=== PATIENT | female | born 1950 | race Caucasian/White ===

== ENCOUNTER 2019-04-01 05:56 | Day surgery (SDC) | payer MEDICARE ==
[2019-03-26 16:31] VITALS: BMI 24.6
[2019-04-01] MEDS ORDERED: LIDOCAINE HCL/PF 2% SDV 5ML VIAL ONE (07:17)
[2019-04-01] MEDS ORDERED: PROPOFOL 20 ML ONE (07:18)
[2019-04-01] MEDS ORDERED: MIDAZOLAM HCL 2 MG/2 ML SINGLE DOSE VIAL ONE (07:18)
[2019-04-01] MEDS ORDERED: BUPIVACAINE HCL 0.25% 125 MG/50 ML VIAL ONE (07:32)
[2019-04-01] MEDS ORDERED: EPHEDRINE SULFATE/0.9% NACL/PF 50 MG/10 ML SYRINGE NR ONE (07:55)
[2019-04-01] MEDS ORDERED: ONDANSETRON 4 MG/2 ML VIAL ONE ×2 (08:02→09:21)
[2019-04-01] MEDS ORDERED: DEXAMETHASONE SOD PHOSPHATE 4 MG/1 ML VIAL ONE (08:02)
[2019-04-01] MEDS ORDERED: ceFAZolin SODIUM 1 GM VIAL ONE (08:02)
[2019-04-01] MEDS ORDERED: SUCCINYLCHOLINE CHLORIDE 200 MG/10 ML SYRINGE ONE (08:07)
[2019-04-01] MEDS ORDERED: GUM MASTIC/STORAX/MSAL/ALCOHOL 1 DRP DROPSBTL MC ONE (08:44)
[2019-04-01] MEDS ORDERED: BUPIVACAINE HCL/PF 0.25% (2.5MG/ML) 10 ML VIAL IJ ONE (08:45)
[2019-04-01] MEDS ORDERED: oxyCODONE HCL 5 MG TABLET PO PRN ×2 (09:06)
[2019-04-01] MEDS ORDERED: ONDANSETRON 4 MG/2 ML VIAL IVPUSH PRN (09:06)
[2019-04-01] MEDS ORDERED: LACTATED RINGERS SOLUTION 1,000 ML IV SCH (09:15)
[2019-04-01] MEDS ORDERED: oxyCODONE HCL 5 MG TABLET ONE (10:07)
[2019-04-01] MEDS ORDERED: ACETAMINOPHEN INJECTION 100 ML IVPB ONE (10:07)
--- NOTE | 2019-04-01 10:21 | OP ---
DATE OF OPERATION: 04/01/2019 PREOPERATIVE DIAGNOSIS: Right thumb ulnar collateral ligament tear. POSTOPERATIVE DIAGNOSIS: Right thumb ulnar collateral ligament tear. OPERATIVE PROCEDURE: Right thumb ulnar collateral ligament repair. SURGEON: Hattie Alfaro MD CHECK WEIGHER: KATHIE Michael ANESTHESIA: General. COMPLICATIONS: None. ESTIMATED BLOOD LOSS: Minimal. INDICATION FOR PROCEDURE: The patient is a 68-year-old female with the above finding indicated for operative treatment. Risks, benefits, alternatives were discussed with the patient at length, and proper informed consent was obtained. PROCEDURE: After proper identification of patient and correct operative site, the patient was brought to the operating room and placed supine on the table, prominences well padded. General anesthesia was provided. The right upper extremity was prepped and draped in the usual sterile fashion. A well-padded tourniquet was placed with a sterile prep. Esmarch bandage used to exsanguinate right upper extremity. Tourniquet was inflated to 250 mmHg. Curvilinear incision was made over the ulnar aspect of the thumb MP joint. Incision was taken sharply through the skin with blunt and sharp dissection of subcutaneous tissue carefully protecting the sensory nerves. Adductor aponeurosis was divided. Stener lesion was noted. Once the adductor aponeurosis was elevated, complete rupture of the ulnar collateral ligament was again noted all through the proximal phalanx. The collateral ligament was teased free in order to achieve adequate length and was whipstitched with a 3-0 FiberWire suture. This was then anchored to the base of the proximal phalanx using an Arthrex SwiveLock anchor, which was also loaded with a FiberTape. The FiberTape was then over on the ulnar collateral ligament and secured over the metacarpal neck with a 2nd SwiveLock anchor. This provided an augmented repair, which was very stable. Full range of motion was achieved. Wound was irrigated. Adductor aponeurosis was repaired, and the skin was repaired in layers. Sterile dressings and a splint were placed. Patient reversed from anesthesia and brought to recovery room in stable condition. She tolerated procedure well. [place], the elementary assistant principal, was integral throughout the procedure. The procedure could not have performed without a skilled operative elementary assistant principal. HATTIE ALFARO M.D. [id number]
[2019-04-01 11:42] VITALS: BP 110/65; PULSE 68; TEMP 98
== END 2019-04-01 12:10 | disposition home or self-care (01) ==
LOC: FASU 05:56
PROVIDERS: ATTEND Orthopaedic Surgery Hand Surgery
PROC: 0MQ70ZZ Repair Right Hand Bursa and Ligament, Open Approach (ICD-10-PCS; principal; 2019-04-01 07:59)
DX: S63.641A Sprain of metacarpophalangeal joint of right thumb, initial encounter (principal); X58.XXXA Exposure to other specified factors, initial encounter; Y93.9 Activity, unspecified; Y92.9 Unspecified place or not applicable
CPT/HCPCS: 94760; J0131